=== PATIENT | female | born 1975 | race Caucasian/White ===

== ENCOUNTER 2016-03-31 09:16 | Emergency (ER) | payer BC ==
[~2016-03-31] VITALS: Ht 167.6 cm; Wt 126.1 kg
[~2016-03-31 09:16] MED LIST: ALBU1AER9 INH; CLRD/12 PO; DOXY100C76 PO; DULO-24 PO; FLUT0.15 NAE; GABA1CAP4 PO; MELO15TA4 PO; METH1TAB81 PO; OMEP20CA9 PO; PENT100C6 PO; SNG10 PO; WLLSR150 PO
[2016-03-31 09:22] VITALS: TEMP 37.4; Ht 167.6 cm; Wt 126.1 kg
[2016-03-31] MEDS ORDERED: XYLOCAINE 1%/SOD BICARB 20 ML VIAL INFIL ONE (09:45)
[2016-03-31] MEDS ORDERED: CLR10 PO (09:46)
[2016-03-31] MEDS ORDERED: DULO60CA44 PO (09:46)
--- NOTE | 2016-03-31 10:14 | EMERGENCY ROOM VISIT NOTE ---
ED Visit Note First contact with patient: 09:25 CHIEF COMPLAINT: Finger laceration HISTORY OF PRESENT ILLNESS: This 41-year-old female patient presents to the emergency department ambulatory after cutting the right fifth finger just prior to arrival. The patient reports that she was attempting to pry apart frozen chicken breast with a butter knife, when she cut her finger. The bleeding has not stopped. Denies weakness or numbness of the finger. The patient has full range of motion of the fingers. The patient denies any significant pain at this time. The patient denies any other injuries. The patient's tetanus shot is up to date. REVIEW OF SYSTEMS: A 6 system review of systems was completed with positives and pertinent negatives listed in the HPI. ALLERGIES: Azithromycin MEDICATIONS: See med list PMH: Asthma SOCIAL HISTORY: The patient lives locally with family. Nonsmoker. PHYSICAL EXAM: Vital Signs: Reviewed Nurse's notes, vital signs stable. GENERAL : This is a 41-year-old female, in no acute distress, well developed, well nourished. SKIN: There is a 1 cm long laceration on the palmar aspect of the right fifth finger. The edges gape apart mildly with traction. There is no foreign material in the wound and it looks clean. There is minimal bleeding. No deep structures such as tendons, bones, or significant blood vessels are seen in the base of the wound. Extension and flexion of the finger is full and strong. Full range of motion of the wrist and other fingers. Capillary refill less than 2 seconds. Normal sensation to light and sharp touch. EMERGENCY DEPARTMENT COURSE: I examined the patient. Verbal consent was obtained to perform the procedure. Using sterile technique the wound was cleansed with Betadine. 1 ml of 1% buffered lidocaine was used to anesthetize the laceration. The area was sterilely draped. Once the patient was anesthetized, the wound was copiously irrigated under pressure with sterile saline. The wound was explored and there were no deep structures injured. The laceration was repaired using 2 simple interrupted 5-0 nylon sutures. The patient tolerated the procedure well. Hemostasis was achieved. The area was cleaned with sterile saline and dressed with bacitracin ointment and bandage. The patient was discharged home in good condition. DIAGNOSIS: Finger laceration Current/Historical Medications Scheduled Bupropion HCl (Bupropion HCl Sr), 150 MG PO BID Doxycycline Monohydrate (Monodox), 100 MG PO BID Duloxetine Hcl (Cymbalta), 60 MG PO DAILY Fluticasone Propionate (Nasal) (Flonase Allergy Relief), 2 SPRAYS MARY DAILY Gabapentin (Gabapentin), 300 MG PO BID Loratadine (Claritin), 10 MG PO DAILY Meloxicam (Mobic), 15 MG PO DAILY Montelukast Sod (Montelukast Sodium), 10 MG PO QAM Omeprazole (Prilosec), 20 MG PO QAM Pentosan Polysulfate Sodium (Elmiron), 100 MG PO BID Scheduled PRN Albuterol (Proair Hfa), 2 PUFF INH Q6 PRN for Wheezing Allergies Coded Allergies: Azithromycin (Verified Allergy, Mild, ZITHROMAX-NAUSEA,DIARRHEA, 03/31/16) Vital Signs Date Time Temp Pulse Resp B/P Pulse Ox O2 Delivery O2 Flow Rate FiO2 03/31/16 10:35 81 16 132/89 96 03/31/16 09:22 37.4 91 18 134/96 97 Room Air Departure Information Impression Primary Impression: Finger laceration Dispostion Home / Self-Care Condition GOOD Referrals Floyd Humphries M.D.([facility]) (PCP) Patient Instructions A Signature Page, My [facility] [place] Additional Instructions You have received 2 sutures on your finger. These sutures are NOT dissolvable and WILL need to be removed by a health care provider in 8-10 days. You can return to the Emergency Department or contact your Primary Care Provider to have the sutures removed. Proper wound care is essential for adequate wound healing and infection prevention. You can shower and clean the wound with soap and water. Do not scour over the wound, pat dry with a towel. Do not submerse the wound (i.e. bathe or dish wash) until the sutures have been removed. You can use an antibiotic ointment with a dressing over the wound for the next 3-4 days. After this time you may leave the wound dry and open to the air. If crust develops over the wound you can use a Q-tip to apply a 1:1 peroxide:water solution to clean the wound. Look for signs of infection of the wound including: increased pain, swelling, foul discharge, streaking, or increased temperature. If any of these are noticed you should return to the Emergency Department for further assessment and treatment. As with any laceration you may have received nerve damage to the surrounding tissues. This damage may or may not be permanent. You should keep the area covered with sunscreen for the first 6 months to 1 year when at risk for exposure to help minimize scarring. You can also use scar reducing creams or Vitamin E oil to help minimize scarring. For pain control, you can use the following [id number] medicines (if >12 yo): - Regular strength (325mg/tab) Tylenol (acetaminophen) 2 tabs every 4-6 hours as needed. Do not exceed 12 tablets in a 24 hour period. Avoid taking more than 4 grams (4000 mg) of Tylenol per day. This includes any other sources of acetaminophen you may take on a regular basis. - Regular strength (200 mg/tab) Advil (ibuprofen) 1-2 tabs every 4-6 hours as needed. Do not exceed a dose of 3200 mg per day. Return to the emergency department if your symptoms worsen despite treatment course outlined above.
[2016-03-31 10:35] VITALS: BP 132/89; PULSE 81; O2SAT 96
== END 2016-03-31 10:37 | disposition home or self-care (01) ==
LOC: C.EDB 09:17
DX: S61.216A Laceration without foreign body of right little finger without damage to nail, initial encounter (principal); W26.0XXA Contact with knife, initial encounter; J45.909 Unspecified asthma, uncomplicated

== ENCOUNTER 2017-01-15 20:46 | Emergency (ER) | payer BC ==
[~2017-01-15] VITALS: Ht 167.6 cm; Wt 105.9 kg
[~2017-01-15 20:46] MED LIST changes: +CLR10 PO; -CLRD/12 PO; -DULO-24 PO; +DULO60CA44 PO; -METH1TAB81 PO
[2017-01-15 20:51] VITALS: TEMP 36.9; Ht 167.6 cm; Wt 105.9 kg
[2017-01-15] MEDS ORDERED: KETOROLAC TROMETHAMINE 30 MG/ML VIAL IV STA (21:53)
[2017-01-15] MEDS ORDERED: SODIUM CHLORIDE 0.9% 1000ML 1,000 ML IV STA (21:53)
[2017-01-15] MEDS ORDERED: ALBU18002 INH (22:08)
[2017-01-15] MEDS ORDERED: MDRDP21 PO (22:16)
[2017-01-15] MEDS ORDERED: HYDR200T5 PO (22:16)
[2017-01-15] MEDS ORDERED: HYDR25CA PO (22:16)
[2017-01-15] MEDS ORDERED: METH-467 PO (22:16)
[2017-01-15] MEDS ORDERED: CYCL0.052 OP (22:16)
[2017-01-15 22:31] VITALS: O2SAT 99
[2017-01-15 22:42] LABS: BASO % 0.6 %; BASO ABS # 0.04 K/uL (0-0.2); COMPLETE YES; EOS % 1.6 %; HEMATOCRIT 44.1 % (37-47); IG% 0.1 %; LYMPH % 29.9 %; MEAN CORPUSCULAR HEMOGLOBIN 32.3 pg (25-34); MEAN CORPUSCULAR HGB CONC 34.7 g/dl (32-36); MEAN PLATELET VOLUME 10.3 fL (7.4-10.4); MONO % 6.7 %; NEUT % 61.1 %; PLATELET COUNT 197 K/uL (130-400); RED BLOOD COUNT 4.74 M/uL (4.2-5.4)
[2017-01-15 22:57] LABS: URINE APPEARANCE CLEAR (CLEAR); URINE BILIRUBIN NEG (NEG); URINE COLOR YELLOW; URINE NITRITE NEG (NEG); URINE PH 6.5 (4.5-7.5); URINE SPECIFIC GRAVITY 1.024 (1.000-1.030); UROBILINOGEN NEG (NEG); ZZUR CULT IF INDIC CLEAN CATCH NO
[2017-01-15 22:59] LABS: MANUAL MICROSCOPIC REQUIRED? NO; REVIEW REQ? NO
[2017-01-15 23:04] LABS: BUN/CREATININE RATIO 23.1 (10-20); CALCIUM 9.4 mg/dl (8.5-10.1); CREATININE 1.13 mg/dl (0.60-1.20); POTASSIUM 3.8 mmol/L (3.5-5.1)
[2017-01-15 23:08] LABS: CKMB/CK RATIO 0.5 (0-3.0)
[2017-01-15 23:25] LABS: LYME DISEASE AB IGG NEG (NEG)
[2017-01-15 23:35] LABS: LYME DISEASE AB IGM EQUIVOCAL (NEG)
[2017-01-16 00:29] VITALS: BP 117/66; PULSE 75; O2SAT 97
--- NOTE | 2017-01-16 00:31 | EMERGENCY ROOM VISIT NOTE ---
History Report prepared by Carlos: Tej May Under the Supervision of: Dr. Ian Morillo D.O. First contact with patient: 21:46 Chief Complaint: DIZZY Stated Complaint: DIZZINESS, JOINT PAIN Nursing Triage Summary: pt c/o feeling dizzy and joint pain since wednesday, went to [facility] and told it was viral History of Present Illness The patient is a 42 year old female who presents to the Emergency Room with complaints of constant dizziness beginning 5 days ago. The patient states that she was in a cross fit competition 6 days ago, and believes that her symptoms might be related to that. She also complains of intermittent nausea, joint pain , flank pain, and headaches. She notes that she feels like her head is "on fire " but is unsure if she has a fever. She reports that her joints are not swollen , but states that her joint pain kept her up last night. She denies any cold or GI symptoms, vomiting, diarrhea, and abdominal pain but notes that she has chronic sinus symptoms. She reports that she has a history of UTIs but states that her symptoms do not feel similar to any previous UTI symptoms. She states that she has a history of fibromyalgia and Sjgren's. The patient states that she has had no known recent exposure to ticks. Source of History: patient Onset: five days ago Position: head Quality: other (dizziness) Timing: constant Associated Symptoms: + headache, + nausea, No vomiting, No abdominal pain, No diarrhea Note: she complains of joint and flank pain and chronic sinus symptoms she denies any cold or GI symptoms Review of Systems See HPI for pertinent positives & negatives. A total of 10 systems reviewed and were otherwise negative. Past Medical & Surgical Medical Problems: (1) Fibromyalgia (2) Sjoegren syndrome (3) UTI (urinary tract infection) Family History No pertinent family history stated. Social History Smoking Status: Never Smoker Drug Use: none Marital Status: Housing Status: lives with family Current/Historical Medications Scheduled Bupropion HCl (Bupropion HCl Sr), 150 MG PO BID Cyclosporine (Ophth) (Restasis), 1 DROPS OP BID Doxycycline Monohydrate (Monodox), 100 MG PO BID Duloxetine Hcl (Cymbalta), 60 MG PO DAILY Fluticasone Propionate (Nasal) (Flonase Allergy Relief), 2 SPRAYS MARY DAILY Gabapentin (Gabapentin), 300 MG PO BID Hydroxychloroquine Sulfate (Plaquenil), 2 TAB PO HS Loratadine (Claritin), 10 MG PO DAILY Meloxicam (Mobic), 15 MG PO DAILY Methenamine Mandelate (Methenamine Mandelate), 1 TAB PO BID Montelukast Sod (Montelukast Sodium), 10 MG PO QAM Omeprazole (Prilosec), 20 MG PO QAM Scheduled PRN Albuterol Sulfate (Proair Respiclick), 2 PUFFS INH Q6 PRN for SOB/Wheezing Hydroxyzine Pamoate (Vistaril), 1 CAP PO TID PRN for Anxiety Methylprednisolone (Methylprednisolone Dose P), 1 PKT PO UD PRN for PRN Allergies Coded Allergies: Azithromycin (Verified Allergy, Mild, ZITHROMAX-NAUSEA,DIARRHEA, 01/15/17) Physical Exam Vital Signs Date Time Temp Pulse Resp B/P (MAP) Pulse Ox O2 Delivery O2 Flow Rate FiO2 01/15/17 22:31 99 Room Air 01/15/17 22:28 128/79 01/15/17 22:16 69 18 100 01/15/17 22:08 71 01/15/17 22:04 125/79 01/15/17 20:51 36.9 71 18 135/89 99 Room Air Physical Exam CONSTITUTIONAL/VITAL SIGNS: Reviewed / noted above. GENERAL: Non-toxic in appearance. INTEGUMENTARY: Warm, dry, and [place]. HEAD: Normocephalic. EYES: without scleral icterus or trauma. ENT/OROPHARYNX: clear and moist. LYMPHADENOPATHY/NECK: Is supple without lymphadenopathy or meningismus. RESPIRATORY: Lungs clear and equal. CARDIOVASCULAR: Regular rate and rhythm. GI/ABDOMEN: Soft and nontender. No organomegaly or pulsatile mass. No rebound or guarding. Normal bowel sounds. EXTREMITIES: Warm and well perfused. No notable joint swelling or increased warmth. BACK: No CVA tenderness. NEUROLOGICAL: Intact without focal deficits. PSYCHIATRIC: normal affect. MUSCULOSKELETAL: Normally developed with good muscle tone. Medical Decision & Procedures Laboratory Results 01/15/17 22:15 Red Blood Count 4.74, Mean Corpuscular Volume 93.0, Mean Corpuscular Hemoglobin 32.3, Mean Corpuscular Hemoglobin Concent 34.7, Mean Platelet Volume 10.3, Neutrophils (%) (Auto) 61.1, Lymphocytes (%) (Auto) 29.9, Monocytes (%) (Auto) 6.7, Eosinophils (%) (Auto) 1.6, Basophils (%) (Auto) 0.6, Neutrophils # (Auto) 4.09, Lymphocytes # (Auto) 2.00, Monocytes # (Auto) 0.45, Eosinophils # (Auto) 0.11, Basophils # (Auto) 0.04 01/15/17 22:15 Test 01/15/17 22:00 01/15/17 22:15 Urine Color YELLOW Urine Appearance CLEAR (CLEAR) Urine pH 6.5 (4.5-7.5) Urine Specific [place] 1.024 (1.000-1.030) Urine Protein NEG (NEG) Urine Glucose (UA) NEG (NEG) Urine Ketones TRACE (NEG) Urine Occult Blood NEG (NEG) Urine Nitrite NEG (NEG) Urine Bilirubin NEG (NEG) Urine Urobilinogen NEG (NEG) Urine Leukocyte Esterase NEG (NEG) Urine WBC (Auto) 1-5 /hpf (0-5) Urine RBC (Auto) 5-10 /hpf (0-4) Urine Hyaline Casts (Auto) 0 /lpf (0-5) Urine Epithelial Cells (Auto) 10-20 /lpf (0-5) Urine Bacteria (Auto) NEG (NEG) White Blood Count 6.70 K/uL (4.8-10.8) Red Blood Count 4.74 M/uL (4.2-5.4) Hemoglobin 15.3 g/dL (12.0-16.0) Hematocrit 44.1 % (37-47) Mean Corpuscular Volume 93.0 fL (80-100) Mean Corpuscular Hemoglobin 32.3 pg (25-34) Mean Corpuscular Hemoglobin Concent 34.7 g/dl (32-36) Platelet Count 197 K/uL (130-400) Mean Platelet Volume 10.3 fL (7.4-10.4) Neutrophils (%) (Auto) 61.1 % Lymphocytes (%) (Auto) 29.9 % Monocytes (%) (Auto) 6.7 % Eosinophils (%) (Auto) 1.6 % Basophils (%) (Auto) 0.6 % Neutrophils # (Auto) 4.09 K/uL (1.4-6.5) Lymphocytes # (Auto) 2.00 K/uL (1.2-3.4) Monocytes # (Auto) 0.45 K/uL (0.11-0.59) Eosinophils # (Auto) 0.11 K/uL (0-0.5) Basophils # (Auto) 0.04 K/uL (0-0.2) RDW Standard Deviation 41.1 fL (36.4-46.3) RDW Coefficient of Variation 12.2 % (11.5-14.5) Immature Granulocyte % (Auto) 0.1 % Immature Granulocyte # (Auto) 0.01 K/uL (0.00-0.02) Erythrocyte Sedimentation Rate 14 mm/hr (0-21) Anion Gap 4.0 mmol/L (3-11) Est Creatinine Clear Calc Drug Dose 79.8 ml/min Estimated GFR () 69.4 Estimated GFR (Non- 59.9 BUN/Creatinine Ratio 23.1 (10-20) Calcium Level 9.4 mg/dl (8.5-10.1) Total Bilirubin 0.7 mg/dl (0.2-1) Direct Bilirubin 0.1 mg/dl (0-0.2) Aspartate Amino Transf (AST/SGOT) 44 U/L (15-37) Alanine Aminotransferase (ALT/SGPT) 66 U/L (12-78) Alkaline Phosphatase 83 U/L (45-117) Total Creatine Kinase 365 U/L (26-192) Creatine Kinase MB 1.8 ng/ml (0.5-3.6) Creatine Kinase MB Ratio 0.5 (0-3.0) Total Protein 8.0 gm/dl (6.4-8.2) Albumin 3.7 gm/dl (3.4-5.0) Lyme Disease IgG Antibody NEG (NEG) Laboratory results as stated above per my review. Medications Administered Medications (Trade) Dose Ordered Sig/Meliton Route Start Time Stop Time Status Last Admin Dose Admin Sodium Chloride 1,000 ml @ 999 mls/hr Q1H1M STAT IV 01/15/17 21:53 01/15/17 22:53 DC 01/15/17 22:22 999 MLS/HR Ketorolac Tromethamine (Toradol Inj) 30 mg NOW STAT IV 01/15/17 21:53 01/15/17 21:55 DC 01/15/17 22:29 30 MG ED Course 2146: Previous medical records were reviewed. The patient was evaluated in room B4. A complete history and physical examination was performed. 2152: Toradol Inj 30mg IV, Sodium Chloride 1000 ml @ 999 mls/hr IV 0026: On reevaluation, the patient is stable. I discussed the results and findings with the patient. She verbalized agreement of the treatment plan. The patient was discharged home. Medical Decision Differential includes acute coronary syndrome, myocardial infarction, CVA, TIA, anemia, infection, pneumonia, UTI, pyelonephritis, poor nutrition, dehydration, electrolyte disturbance,hypoglycemia.. This is a 42-year-old female who presents to the ED with a chief complaint of dizziness, headaches, joint pains as well as flank pains. The patient states that she has had some off-and-on nausea. The patient states that she has had the symptoms for about 6 days. She states that her symptoms started after a cross fit exercise tournament. She states that she was exercising vigorously. The patient denies any fevers, vomiting or diarrhea. No rashes. There is no abnormal swelling of the joints. The patient has a history of Sjogren's and fibromyalgia. She currently complains of some dizziness as well as flank pains and joint aches. Her vital signs are normal. Her physical exam did not reveal any obvious abnormalities. His sedimentation rate was 14. CBC is normal, complete metabolic panel was unremarkable and urine did not show infection. Lyme test was equivocal. The patient was treated with IV fluids and IV Toradol. The patient will be discharged. She has no clearcut infections concerning Lyme disease. Will await the results of the other tests or treatment. The patient was told to follow-up with her family doctor for recheck and to follow-up on the Lyme testing next week. Medication Reconcilliation Current Medication List: was personally reviewed by me Blood Pressure Screening Patient's blood pressure: Normal blood pressure Blood pressure disposition: Did not require urgent referral Impression Primary Impression: Dizziness Additional Impression: Aches Scribe Attestation The scribe's documentation has been prepared under my direction and personally reviewed by me in its entirety. I confirm that the note above accurately reflects all work, treatment, procedures, and medical decision making performed by me. Departure Information Dispostion Home / Self-Care Referrals Floyd Humphries M.D.([facility]) (PCP) Forms HOME CARE DOCUMENTATION FORM, IMPORTANT VISIT INFORMATION Patient Instructions [facility] Additional Instructions Follow-up with your doctor next week for recheck of the Lyme testing. Use [id number] medications as needed for discomfort. Follow-up with your doctor for further care and evaluation in 5-7 days. Return to the emergency department for worsening or new symptoms or any concerns. You have been examined and treated today on an emergency basis only. This is not a substitute for, or an effort to provide, complete comprehensive medical care. It is impossible to recognize and treat all injuries or illnesses in a single emergency department visit. It is therefore important that you follow up closely with your doctor. Call as soon as possible for an appointment. Problem Qualifiers
== END 2017-01-16 00:43 | disposition home or self-care (01) ==
LOC: C.EDB 20:47
DX: R42 Dizziness and giddiness (principal); R53.1 Weakness; M79.7 Fibromyalgia

== ENCOUNTER 2017-07-07 19:11 | Emergency (ER) | payer BC ==
[~2017-07-07] VITALS: Ht 167.6 cm; Wt 121.8 kg
[~2017-07-07 19:11] MED LIST changes: -ALBU1AER9 INH; +GABA-1219 PO; -GABA1CAP4 PO; +HYDR200T5 PO; +HYDR25CA PO; +MDRDP21 PO; +MELO-84 PO; -MELO15TA4 PO; -PENT100C6 PO
[2017-07-07 19:29] VITALS: TEMP 37; Ht 167.6 cm; Wt 121.8 kg
[2017-07-07] MEDS ORDERED: SODIUM CHLORIDE 0.9% 1000ML 1,000 ML IV STA (19:56)
--- NOTE | 2017-07-07 20:08 | EMERGENCY ROOM VISIT NOTE ---
History Report prepared by Carlos: Lilia Vera Under the Supervision of: Dr. Edgar Ashley M.D. First contact with patient: 19:54 Chief Complaint: ABDOMINAL PAIN Stated Complaint: SEVERE RT SIDE PAIN Nursing Triage Summary: Patient notes sharp pain on right side that has been off and on for approx. a month. Pain returned several times nad went away, this occurrence started tonight. Patient denies urinary symptoms. Patient notes nausea as well. History of Present Illness The patient is a 42 year old female who presents to the Emergency Room with complaints of worsening right-sided abdominal pain beginning a couple of days ago. She reports that she went to Fund[facility] and was then referred to the ER. The patient reports having this pain 1 month ago and 2 weeks ago and that she has also had vomiting and diarrhea with it. She reports that she is unsure if she had fevers. The patient reports that she has had one episode of diarrhea today. She reports that she has had nausea but did not vomit within the last couple of days but did throw up bile when she had the pain 1 month ago. The patient also reports having reflux. The patient denies burning with urination. She denies a history of a cholecystectomy, but reports a history of gallstones. Source of History: patient Onset: couple of days ago Position: abdomen Quality: other (pain ) Timing: worsening Associated Symptoms: + nausea, + vomiting, + diarrhea, No urinary symptoms Review of Systems See HPI for pertinent positives and negatives. A total of ten systems were reviewed and were otherwise negative. Past Medical & Surgical Medical Problems: (1) Fibromyalgia (2) Sjoegren syndrome (3) UTI (urinary tract infection) Family History FH: hypertension FHx: diabetes mellitus Heart disease Social History Smoking Status: Never Smoker Drug Use: none Marital Status: Housing Status: lives with family Current/Historical Medications Scheduled Bupropion HCl (Bupropion HCl Sr), 150 MG PO BID Cyclosporine (Ophth) (Restasis), 1 DROP OPB BID Diclofenac (Voltaren), 75 MG PO BID Doxycycline Hyclate (Doxycycline Hyclate), 100 MG PO BID Duloxetine HCl (Duloxetine HCl), 60 MG PO DAILY Folic Acid (Folic Acid), 1 MG PO DAILY Gabapentin (Gabapentin), 300 MG PO TID Hydroxychloroquine Sulfate (Hydroxychloroquine Sulfat), 400 MG PO HS Loratadine (Claritin), 10 MG PO DAILY Methenamine Mandelate (Methenamine Mandelate), 0.5 GM PO BID Methotrexate (Methotrexate), 15 MG PO WK Montelukast Sod (Montelukast Sodium), 10 MG PO QPM Omeprazole (Prilosec), 20 MG PO QAM Ondasetron Odt (Zofran Odt), 4 MG SL Q6H Scheduled PRN Albuterol Sulfate (Proair Respiclick), 2 PUFFS INH Q6H PRN for SOB/Wheezing Diclofenac Sodium (Topical) (Voltaren 1% Top Gel), 1 APPLN TOP UD PRN for Pain Hydroxyzine HCl (Hydroxyzine Pamoate), 25 MG PO TID PRN for Anxiety Rizatriptan Benzoate (Rizatriptan Benzoate), 10 MG PO UD PRN for Migraine Allergies Coded Allergies: Azithromycin (Verified Allergy, Mild, ZITHROMAX-NAUSEA,DIARRHEA, 01/15/17) Physical Exam Vital Signs Date Time Temp Pulse Resp B/P (MAP) Pulse Ox O2 Delivery O2 Flow Rate FiO2 07/07/17 21:46 70 18 129/70 96 07/07/17 20:23 78 18 130/80 95 Room Air 07/07/17 19:29 37.0 91 18 145/97 97 Room Air Physical Exam GENERAL: Awake, alert, fatigued, uncomfortable-appearing, in no distress HENT: Normocephalic, atraumatic. Dry mucous membranes, otherwise oropharynx unremarkable. EYES: Normal conjunctiva. Sclera non-icteric. NECK: Supple. No nuchal rigidity. FROM. No JVD. RESPIRATORY: Clear to auscultation. CARDIAC: Regular rate, normal rhythm. Extremities warm and well perfused. Pulses equal. ABDOMEN: Soft, non-distended. Mild right upper quadrant tenderness. No peritoneal signs. No rebound or guarding. No masses. RECTAL: Deferred. MUSCULOSKELETAL: Chest examination reveals no tenderness. The back is symmetrical on inspection without obvious abnormality. There is no CVA tenderness to palpation. No joint edema. LOWER EXTREMITIES: Calves are equal size bilaterally and non-tender. No edema. No discoloration. NEURO: Normal sensorium. No sensory or motor deficits noted. SKIN: No rash or jaundice noted. Medical Decision & Procedures ER Provider Diagnostic Interpretation: Radiology results as stated below per my review and radiologist interpretation: ABDOMINAL ULTRASOUND, RIGHT UPPER QUADRANT HISTORY: +gallstones, r/o obstruction, cholecystitis. COMPARISON: None. FINDINGS: Exam is mildly compromised by suboptimal penetration. No hepatic lesions are identified. There are numerous gallstones within the gallbladder. Mild gallbladder wall thickening is noted. The gallbladder wall measures 4 mm in thickness. No sonographic Gomez sign was elicited. There was no pericholecystic fluid. No biliary ductal dilatation is present. The common bile duct measures 5 mm in caliber. Caliber of the main pancreatic duct is at the upper limits of normal. The pancreatic body is unremarkable. The head and tail are partially obscured. There is possible visualization of the right kidney which appears atrophic. IMPRESSION: 1. Cholelithiasis and mild gallbladder wall thickening. No sonographic Gomez sign or pericholecystic fluid. These findings are not highly suggestive of acute cholecystitis however a hepatobiliary scan could be obtained as indicated. 2. No biliary ductal dilatation. 3. Partially obscured pancreas. 4. Suspected marked right renal atrophy. Electronically signed by: Vik Michelle M.D. 07/07/2017 9:05 PM Dictated Date/Time: 07/07/2017 9:02 PM Laboratory Results 07/07/17 20:15 Red Blood Count 4.20, Mean Corpuscular Volume 94.3, Mean Corpuscular Hemoglobin 31.9, Mean Corpuscular Hemoglobin Concent 33.8, Mean Platelet Volume 9.5, Neutrophils (%) (Auto) 60.7, Lymphocytes (%) (Auto) 28.5, Monocytes (%) (Auto) 7.1, Eosinophils (%) (Auto) 2.9, Basophils (%) (Auto) 0.5, Neutrophils # (Auto) 4.82, Lymphocytes # (Auto) 2.26, Monocytes # (Auto) 0.56, Eosinophils # (Auto) 0.23, Basophils # (Auto) 0.04 07/07/17 20:15 Test 07/07/17 20:15 White Blood Count 7.93 K/uL (4.8-10.8) Red Blood Count 4.20 M/uL (4.2-5.4) Hemoglobin 13.4 g/dL (12.0-16.0) Hematocrit 39.6 % (37-47) Mean Corpuscular Volume 94.3 fL (80-100) Mean Corpuscular Hemoglobin 31.9 pg (25-34) Mean Corpuscular Hemoglobin Concent 33.8 g/dl (32-36) Platelet Count 226 K/uL (130-400) Mean Platelet Volume 9.5 fL (7.4-10.4) Neutrophils (%) (Auto) 60.7 % Lymphocytes (%) (Auto) 28.5 % Monocytes (%) (Auto) 7.1 % Eosinophils (%) (Auto) 2.9 % Basophils (%) (Auto) 0.5 % Neutrophils # (Auto) 4.82 K/uL (1.4-6.5) Lymphocytes # (Auto) 2.26 K/uL (1.2-3.4) Monocytes # (Auto) 0.56 K/uL (0.11-0.59) Eosinophils # (Auto) 0.23 K/uL (0-0.5) Basophils # (Auto) 0.04 K/uL (0-0.2) RDW Standard Deviation 43.8 fL (36.4-46.3) RDW Coefficient of Variation 12.8 % (11.5-14.5) Immature Granulocyte % (Auto) 0.3 % Immature Granulocyte # (Auto) 0.02 K/uL (0.00-0.02) Anion Gap 7.0 mmol/L (3-11) Est Creatinine Clear Calc Drug Dose 76.2 ml/min Estimated GFR () 59.7 Estimated GFR (Non- 51.5 BUN/Creatinine Ratio 18.4 (10-20) Calcium Level 8.8 mg/dl (8.5-10.1) Total Bilirubin 0.4 mg/dl (0.2-1) Direct Bilirubin < 0.1 mg/dl (0-0.2) Aspartate Amino Transf (AST/SGOT) 28 U/L (15-37) Alanine Aminotransferase (ALT/SGPT) 36 U/L (12-78) Alkaline Phosphatase 74 U/L (45-117) Total Protein 7.0 gm/dl (6.4-8.2) Albumin 3.1 gm/dl (3.4-5.0) Lipase 201 U/L (73-393) Laboratory results reviewed by me Medications Administered Medications (Trade) Dose Ordered Sig/Meliton Route Start Time Stop Time Status Last Admin Dose Admin Sodium Chloride 1,000 ml @ 999 mls/hr Q1H1M STAT IV 07/07/17 19:56 07/07/17 20:56 DC 07/07/17 20:24 999 MLS/HR Fentanyl Citrate (Fentanyl Inj) 50 mcg NOW STAT IV 07/07/17 20:13 07/07/17 20:15 DC 07/07/17 20:24 50 MCG ED Course 1955: The patient was evaluated in room A2. A complete history and physical exam was performed. 2122: I reevaluated the patient and she is feeling better. Discussed results and discharge instructions: She verbalized understanding and agreement. The patient is ready for discharge. Medical Decision I reviewed the patient's past medical history, medications, and the nursing notes as described above. Differential diagnosis: Etiologies such as appendicitis, diverticulitis, PUD, biliary pathology, UTI, pancreatitis, obstruction, mesenteric ischemia, aortic pathology, infections, inflammatory bowel disease, renal colic, as well as others were entertained. The patient is a 42-year-old woman with a past medical [facility] with right upper quadrant abdominal pain with nausea vomiting diarrhea per hpi. The patient is fatigued appearing in no acute distress, afebrile stable vital signs. She has mild right upper quadrant tenderness with no Gomez sign. Bedside ultrasound demonstrates numerous gallstones without any pericholecystic fluid. WBC within normal limits. Mildly elevated creatinine in the setting of the patient's clinically dry appearance. Otherwise no evidence of obstructive process with LFTs. Normal right upper quadrant ultrasound demonstrates a questionable thickened gallbladder wall however no pericholecystic fluid and normal CBD. Patient had no sonographic Gomez sign. Recommending HIDA scan. Patient was reassessed and feeling improved after IV fluid hydration and analgesics. Given reassuring lab results and improved exam, it is reasonable to pursue outpatient HIDA scan and outpatient surgery follow-up. Case management assisting and will contact the patient's PCP to order a HIDA scan. The patient was given strict return instructions. Findings and plan for follow-up reviewed with patient. Patient agreeable and d/c'd per discharge instructions. Medication Reconcilliation Current Medication List: was personally reviewed by me Blood Pressure Screening Patient's blood pressure: Elevated blood pressure Blood pressure disposition: Elevated BP felt to be situational Impression Primary Impression: Cholelithiasis Scribe Attestation The scribe's documentation has been prepared under my direction and personally reviewed by me in its entirety. I confirm that the note above accurately reflects all work, treatment, procedures, and medical decision making performed by me. Departure Information Dispostion Home / Self-Care Prescriptions Ondasetron Odt (ZOFRAN ODT) 4 Mg Tab 4 MG SL Q6H for Nausea, #10 TAB Prov: Edgar Ashley M.D. 07/07/17 Referrals Floyd Humphries M.D.([facility]) (PCP) Italia Melo MD Forms Call Back Authorization, HOME CARE DOCUMENTATION FORM, IMPORTANT VISIT INFORMATION Patient Instructions ED Gallstone W Biliary Colic, My [facility] Additional Instructions Please follow up with your primary care physician and general surgery, Dr. Melo, in the next week for re-evaluation. Our case management team will also contact your doctor to order an outpatient HIDA to further evaluate the function of your gall bladder. Otherwise, your exam, lab results, and ultrasound did not show signs of an emergent condition at this time. Acetaminophen for pain and fevers as needed. Zofran as needed for nausea. Drink plenty of fluids to ensure hydration. Avoid fatty foods. Return to the emergency department for worsening symptoms as described in the accompanying instructions.
[2017-07-07] MEDS ORDERED: FENTANYL CITRATE INJ 50 MCG/1 ML 2 ML VIAL IV STA (20:13)
[2017-07-07 20:36] LABS: BASO % 0.5 %; BASO ABS # 0.04 K/uL (0-0.2); EOS % 2.9 %; EOS ABS # 0.23 K/uL (0-0.5); HEMATOCRIT 39.6 % (37-47); HEMOGLOBIN 13.4 g/dL (12.0-16.0); IG# 0.02 K/uL (0.00-0.02); LYMPH % 28.5 %; LYMPH ABS # 2.26 K/uL (1.2-3.4); MEAN CELL VOLUME 94.3 fL (80-100); MEAN CORPUSCULAR HEMOGLOBIN 31.9 pg (25-34); MEAN CORPUSCULAR HGB CONC 33.8 g/dl (32-36); MEAN PLATELET VOLUME 9.5 fL (7.4-10.4); MONO % 7.1 %; MONO ABS # 0.56 K/uL (0.11-0.59); NEUT % 60.7 %; NEUT ABS # 4.82 K/uL (1.4-6.5); PLATELET COUNT 226 K/uL (130-400); RED CELL DISTRIBUTION WIDTH CV 12.8 % (11.5-14.5); RED CELL DISTRIBUTION WIDTH SD 43.8 fL (36.4-46.3); WHITE BLOOD COUNT 7.93 K/uL (4.8-10.8)
[2017-07-07 21:02] LABS: ALBUMIN 3.1 gm/dl (3.4-5.0); ALT/SGPT 36 U/L (12-78); BLOOD UREA NITROGEN 24 mg/dl (7-18); CALCIUM 8.8 mg/dl (8.5-10.1); CARBON DIOXIDE 25 mmol/L (21-32); CREATININE 1.28 mg/dl (0.60-1.20); GLUCOSE 118 mg/dl (70-99); LIPASE 201 U/L (73-393); POTASSIUM 3.6 mmol/L (3.5-5.1); SODIUM 139 mmol/L (136-145)
[2017-07-07 21:05] LABS: ALKALINE PHOSPHATASE 74 U/L (45-117); AST/SGOT 28 U/L (15-37)
--- NOTE | 2017-07-07 21:06 | DIAGNOSTIC IMAGING REPORT ---
ABDOMINAL ULTRASOUND, RIGHT UPPER QUADRANT HISTORY: +gallstones, r/o obstruction, cholecystitis. COMPARISON: None. FINDINGS: Exam is mildly compromised by suboptimal penetration. No hepatic lesions are identified. There are numerous gallstones within the gallbladder. Mild gallbladder wall thickening is noted. The gallbladder wall measures 4 mm in thickness. No sonographic Gomez sign was elicited. There was no pericholecystic fluid. No biliary ductal dilatation is present. The common bile duct measures 5 mm in caliber. Caliber of the main pancreatic duct is at the upper limits of normal. The pancreatic body is unremarkable. The head and tail are partially obscured. There is possible visualization of the right kidney which appears atrophic. IMPRESSION: 1. Cholelithiasis and mild gallbladder wall thickening. No sonographic Gomez sign or pericholecystic fluid. These findings are not highly suggestive of acute cholecystitis however a hepatobiliary scan could be obtained as indicated. 2. No biliary ductal dilatation. 3. Partially obscured pancreas. 4. Suspected marked right renal atrophy. Electronically signed by: Vik Michelle M.D. 07/07/2017 9:05 PM Dictated Date/Time: 07/07/2017 9:02 PM
[2017-07-07] MEDS ORDERED: FLV1 PO (21:38)
[2017-07-07] MEDS ORDERED: VBRT100 PO (21:38)
[2017-07-07] MEDS ORDERED: CYM60 PO (21:38)
[2017-07-07] MEDS ORDERED: PLQ200 PO (21:38)
[2017-07-07] MEDS ORDERED: MTH25 PO (21:38)
[2017-07-07] MEDS ORDERED: DICL-201 PO (21:38)
[2017-07-07] MEDS ORDERED: RIZA10TA21 PO (21:42)
[2017-07-07] MEDS ORDERED: VST25HP PO (21:42)
[2017-07-07] MEDS ORDERED: DICL1GEL12 TOP (21:42)
[2017-07-07 21:46] VITALS: BP 129/70; PULSE 70; O2SAT 96
[2017-07-07] MEDS ORDERED: ONDA4TAB10 SL (21:46)
[2017-07-07] MEDS ORDERED: ALBU18002 INH (22:08)
[2017-07-07] MEDS ORDERED: CYCL0.052 OPB (22:16)
[2017-07-07] MEDS ORDERED: METH-467 PO (22:16)
== END 2017-07-07 21:47 | disposition home or self-care (01) ==
LOC: C.EDB 19:12 → C.EDA 21:47
DX: K80.20 Calculus of gallbladder without cholecystitis without obstruction (principal); R03.0 Elevated blood-pressure reading, without diagnosis of hypertension; K21.9 Gastro-esophageal reflux disease without esophagitis; Q87.1 Congenital malformation syndromes predominantly associated with short stature; Z79.899 Other long term (current) drug therapy; Z88.1 Allergy status to other antibiotic agents; Z82.49 Family history of ischemic heart disease and other diseases of the circulatory system; Z83.3 Family history of diabetes mellitus

== ENCOUNTER → 2017-07-22 | Outpatient (CLI) | payer BC ==
[~2017-07-22] MED LIST changes: +ALBU18002 INH; +CYCL0.052 OPB; +CYM60 PO; +DICL-201 PO; +DICL1GEL12 TOP; -DOXY100C76 PO; -DULO60CA44 PO; -FLUT0.15 NAE; +FLV1 PO; -HYDR200T5 PO; -HYDR25CA PO; -MDRDP21 PO; -MELO-84 PO; +METH-467 PO; +MTH25 PO; +ONDA4TAB10 SL; +PLQ200 PO; +RIZA10TA21 PO; +VBRT100 PO; +VST25HP PO
== END | disposition home or self-care (01) ==
LOC: C.RDSM 16:39
PROVIDERS: ATTEND Orthopaedic Surgery Sports Medicine
DX: S92.919A Unspecified fracture of unspecified toe(s), initial encounter for closed fracture (principal); X58.XXXA Exposure to other specified factors, initial encounter